=== PATIENT | male | born 1990 | race Caucasian/White ===

== ENCOUNTER 2024-07-19 17:52 | Emergency (ER) | payer OTHER, SELFPAY ==
[2024-07-19 17:54] VITALS: BP 127/78; PULSE 56; RESP 18; TEMP 36.8; O2SAT 100
[2024-07-19 17:57] VITALS: BMI 29.9
--- NOTE | 2024-07-19 17:57 | CT_ITS ---
EXAM: BRAIN/HEAD WITHOUT CONTRAST CLINICAL HISTORY: 34-year-old male, pain, progressive double vision for several weeks, bilateral papilledema and 6 cranial nerve palsy. Sent from poke in office. Positive family history for brain tumor in brother. COMPARISON: None. TECHNIQUE: Noncontrast images of the head with multiplanar reconstructions. Dose reduction techniques were used including intermediate exposure control (AEC),iterative reconstruction technique, and/or mA and/or KV dose adjustments based on patient's size. FINDINGS: Large, ill-defined left frontal lobe mass with coarse, gyriform like calcifications. The mass measures at least 5.5 x 3.9 cm (series 601, image 37). There is moderate surrounding left frontal lobe vasogenic edema. There is moderate [id number] midline shift measuring 8 mm. Asymmetric distention of the temporal horn of the right lateral ventricle. No obvious herniation. The cerebral volume and white matter are otherwise age-appropriate. Mild mucosal thickening of the left maxillary sinus. Visualized paranasal sinuses and mastoid air cells are clear. Tortuous bilateral optic nerves sheaths with flattening of the globes. The calvarium is grossly intact. CT/Brain/Head without Contrast IMPRESSION: 1. Large, partially calcified ill-defined left frontal lobe mass with surroundi ng edema, most compatible with oligodendroglioma. Additional differential diagnoses include astrocytoma or metastatic disease. D edicated brain MRI with and without contrast is recommended for further evaluation. 2. Moderate [id number] midline shift measuring 8 mm. 3. Findings compatible with bilateral papilledema. Dr. Madrigal discuss these findings via telephone with Fernanda Torres at 6:25 pm on 07/19/24. Reading Location: [id number]
[2024-07-19 18:21] LABS: Mean Corpuscular Hgb 31.8 pg (27.0-32.0); Mean Corpuscular Volume 93.4 fL (80-94); Mean Platelet Vol. 9.6 fl (6.2-12.0); Platelet Count 374 K/mm3 (150-450); RBC Distribution Width SD 41.5 fl (35.1-43.9); Red Blood Count 5.03 M/mm3 (4.6-6.2); White Blood Count 8.9 K/mm3 (4.4-11.0)
[2024-07-19 18:29] LABS: International Normalized Ratio 0.9; Prothrombin Time (Protime)PT. 12.1 SECONDS (11.7-14.9)
[2024-07-19 18:30] LABS: Partial Thromboplast Time 43.3 Seconds (24.1-36.2)
[2024-07-19 18:32] VITALS: BP 137/76; PULSE 53; RESP 16; O2SAT 100
--- NOTE | 2024-07-19 18:34 | EDS_ITS ---
HPI History of Present Illness Chief Complaint: Headache Informant: patient Narrative Narrative: Patient is a 34-year-old male denies any significant past medical history presenting with worsening headache, double vision no nausea and vomiting. Patient states that he has been having headaches intermittently for the past 4 to 6 weeks. He states they would occur at intermittent episodes where he would feel lightheaded, have a headache and get some blurry vision. They started occurring with increased frequency and his symptoms been particularly bad for the past 3 days. For the past 2 days he has had vomiting in the morning. He saw Dr. Tomas, ophthalmology today and had a dilated fundus exam. He was sent to the ER because on exam patient was noted to have bilateral 6th nerve palsy, bilateral significant papilledema with hemorrhage highly concerning for increased intracranial pressure. Patient notes had a sinus infection 6 weeks ago but was treated for that. Though symptoms have resolved. Denies any recent fever or chills. Denies any head trauma. Does note that his brother at 25 and had a brain tumor which he thinks is on his brainstem but he does not recall the details further. [facility] Home Medications ?Medication ?Instructions ?Recorded ?Last Taken ?Type NK 07/19/24 Unknown History Allergy/AdvReac Type Severity Reaction Status Date / Time No Known Allergies Allergy Verified 07/19/24 18:12 Social History Smoking Status: Never smoker ROS ROS ED Constitutional Constitutional ED: Denies chills or fever(s) Eyes Eyes: Reports blurry vision and change in vision ENT ENT ED: Denies sore throat Cardiovascular Cardiovascular: Denies palpitations Respiratory/Chest Respiratory/Chest: Denies dyspnea Gastrointestinal Gastrointestinal: Reports nausea and vomiting Musculoskeletal Musculoskeletal: Denies arthralgias, myalgias or neck pain Neurologic Neurologic: Reports headache(s); Denies paresthesias or weakness Hematologic/Lymphatic Hematologic/Lymphatic: Denies easy bleeding or easy bruising EXAM Physical Exam Const Vital Signs: 07/19/24 17:54 07/19/24 18:32 07/19/24 19:00 Temperature 98.3 F Temperature Source Oral Pulse Rate 56 L 53 L 49 L Respiratory Rate 18 16 16 Blood Pressure 127/78 H 137/76 H 129/71 H Blood Pressure Mean 94 96 90 Pulse Ox 100 100 98 Oxygen Delivery Method Room Air Room Air Room Air 07/19/24 19:37 07/19/24 19:59 Temperature 98 F Temperature Source Pulse Rate 57 L 52 L Respiratory Rate 16 16 Blood Pressure 131/70 H 132/75 H Blood Pressure Mean 90 94 Pulse Ox 99 99 Oxygen Delivery Method Room Air Positive well nourished and well developed General Appearance ED: well developed HEENT Reports normocephalic and moist mucous membranes atraumatic Eyes Eyes Narrative: Pupils dilated (had prior dilation at policy advisor office). EOMI. I do not appreciate an obvious cranial nerve palsy. Funduscopic exam shows bilateral papilledema with hemorrhage. Neck no lymphadenopathy and supple Resp normal respiratory effort and clear to auscultation bilaterally Cardio regular rate and regular rhythm GI non-tender and non-distended Auscultation: normoactive bowel sounds Palpation: soft; Negative for tender Extremity normal to inspection and full ROM Neuro oriented x3, CN's II-XII intact bilaterally and no sensory deficits noted Sensorium / Orientation: awake and alert Speech: speech normal Sensory Exam: No sensory level loss detected Motor Exam: strength 5/5 throughout; Negative for general weakness Psych mental status grossly normal Skin Lesions: no lesions Rashes: no rashes MDM MDM MDM Narrative Medical decision making narrative: Patient evaluated for progressive headaches, vomiting and abnormal ophthal mologic/fundic exam concerning for intracranial process. Initially discussed the case with ophthalmology, Dr. Tomas. CT of the brain ordered when patient arrived to the emergency room. CT shows what appears to be mass of the left frontal/parietal area with associated vasogenic edema and calcifications versus hemorrhage. Case is discussed with radiologist, Dr. Madrigal. Patient states that he would prefer to go to [facility] but will go wherever he needs to. Will be given 10 mg IV Decadron. At this time waiting to hear back from [facility] transfer at this time. @[id number]?spoke to Dr. Martinez through [facility] transfer line. Neurosurgeon. He accepted the patient. Agreeable to 10 mg IV Decadron. No other orders at this time. Waiting to hear back about bed status Lab Data Labs: Laboratory Results - last 24 hr 07/19/24 18:12 WBC 8.9 RBC 5.03 Hgb 16.0 Hct 47.0 MCV 93.4 MCH 31.8 MCHC 34.0 RDW Std Deviation 41.5 RDW Coeff of Pavan 12.0 Plt Count 374 MPV 9.6 PT 12.1 INR 0.9 APTT 43.3 H Sodium 140 Potassium 3.8 Chloride 104 Carbon Dioxide 28.0 Anion Gap 8 BUN 10 Creatinine 0.84 Estim Creat Clear Calc 129.13 Est GFR (MDRD) Af Amer 134 Est GFR (MDRD) Non-Af 111 BUN/Creatinine Ratio 11.9 Glucose 103 Calcium 9.3 Radiography Diagnostic Testing: Clinical Impression(s) from Imaging Studies Brain CT 07/19/24 17:57 IMPRESSION: 1. Large, partially calcified ill-defined left frontal lobe mass with surrounding edema, most compatible with oligodendroglioma. Additional differential diagnoses include astrocytoma or metastatic disease. Dedicated brain MRI with and without contrast is recommended for further evaluation. 2. Moderate [id number] midline shift measuring 8 mm. 3. Findings compatible with bilateral papilledema. Dr. Madrigal discuss these findings via telephone with Fernanda Torres at 6:25 pm on 07/19/24. Reading Location: [id number] Discharge Plan Triage Chief Complaint: Headache ED Provider: Debora Torres Dx/Rx/DC Orders Prescriptions: No Action NK Primary Care Provider: Husam Price Referrals: Husam Price DO [Primary Care Provider] - Print Language: Sudanese Disposition Disposition: Acute Care Hospital Discharge Location: [facility] Discharge Date/Time: 07/19/24 20:02
[2024-07-19] MEDS: dexAMETHasone 10 MG/ML Vial IV (18:38)
[2024-07-19 18:42] LABS: Anion Gap 8 (5-15); BUN 10 mg/dL (7-18); BUN/Creat Ratio 11.9 RATIO (10-20); Calcium,Total 9.3 mg/dL (8.5-10.1); Chloride 104 mmol/L (98-107); Creatinine, Serum 0.84 mg/dL (0.70-1.30); EST Glomerular Filtration Rate 111 mL/min (>60); Est Glom Filt Rate - Afr Amer 134 mL/min (>60); Estimated Creatinine Clearance 129.13 ml/min; Glucose 103 mg/dL (74-106); Potassium 3.8 mmol/L (3.5-5.1); Sodium Level 140 mmol/L (136-145)
[2024-07-19 19:00] VITALS: BP 129/71; PULSE 49; RESP 16; O2SAT 98
[2024-07-19 19:37] VITALS: BP 131/70; PULSE 57; RESP 16; O2SAT 99
[2024-07-19 19:59] VITALS: BP 132/75; PULSE 52; RESP 16; TEMP 36.6; O2SAT 99
== END 2024-07-19 20:02 | disposition short-term general hospital (02) ==
LOC: ED 18:50
PROVIDERS: Emergency Provider Emergency Medicine; PCP Family Medicine; Visit Provider Emergency Medicine
DX: G93.89 Other specified disorders of brain (principal); Z80.8 Family history of malignant neoplasm of other organs or systems
CPT/HCPCS: 70450; 80048; 85027; 85610; 85730; 96374; 99285; A4216